=== PATIENT | female | born 1935 | race Two or more races ===

== ENCOUNTER → 2016-12-16 | Outpatient (CLI) | END | disposition home or self-care (01) | DX: M17.0 Bilateral primary osteoarthritis of knee (principal); E66.01 Morbid (severe) obesity due to excess calories; I83.009 Varicose veins of unspecified lower extremity with ulcer of unspecified site; M85.862 Other specified disorders of bone density and structure, left lower leg; I10 Essential (primary) hypertension; Z86.718 Personal history of other venous thrombosis and embolism | CPT/HCPCS: 73562; G0463 ==